=== PATIENT | male | born 1975 | race Caucasian/White ===

== ENCOUNTER 2017-11-18 11:44 | Emergency (ER) | payer OTHER, SELFPAY ==
[2017-11-18 11:45] VITALS: BP 146/106; PULSE 103; RESP 16; TEMP 36.1; BMI 24.3
--- NOTE | 2017-11-18 12:05 | ED.RN ---
pt reports he is only here because his wanted him out of the house. they are going through a divorce.
[2017-11-18 12:28] LABS: Absolute Neutrophil Count 8.1 X10^3/uL (2.0-7.7); Basophil# 0.04 X10^3/uL; Basophil% 0.3 % (0-1); Eosinophil# 0.25 X10^3/uL; Eosinophils% 2.1 % (0-5); Hematocrit 45.5 % (40-54); Lymphocyte % 22.3 % (19-41); Mean Corpuscular Volume 87.8 fL (80-94); Mean Platelet Vol. 9.8 fl (6.2-12.0); Monocyte# 0.95 X10^3/uL; Monocyte% 7.9 % (0-10); Neutrophil # 8.14 X10^3/uL (2.7-7.7); Neutrophil % 67.2 % (47-70); Platelet Count 279 K/mm3 (150-450); RBC Distribution Width CV 14.1 % (11.6-14.6); RBC Distribution Width SD 45.7 fl (35.1-43.9); Red Blood Count 5.18 M/mm3 (4.6-6.2); White Blood Count 12.1 K/mm3 (4.4-11.0)
[2017-11-18 12:33] LABS: POSITIVE COUNT NO; POSITIVE DIFFERENTIAL NO; POSITIVE MORPHOLOGY NO
[2017-11-18 12:50] LABS: AST(SGOT) 14 U/L (15-37); Alanine Aminotransfer ALT/SGPT 24 U/L (16-61); Albumin, Serum 3.9 g/dL (3.2-5.0); Alkaline Phosphatase 82 U/L (45-117); Anion Gap 3 (5-15); BUN 8 mg/dL (7-18); BUN/Creat Ratio 8.9 RATIO (10-20); Calcium,Total 8.8 mg/dL (8.5-10.1); Chloride 106 mmol/L (98-107); EST Glomerular Filtration Rate 98 mL/min (>60); Est Glom Filt Rate - Afr Amer 118 mL/min (>60); Estimated Creatinine Clearance 101.33 ml/min; Globulin 3.9 g/dL (2.2-4.2); Glucose 91 mg/dL (74-106); Protein, Total 7.8 g/dL (6.4-8.2); Sodium Level 139 mmol/L (136-145); Thyroid Stim Hormone (TSH) 2.05 uIU/mL (0.358-3.74)
[2017-11-18 13:01] LABS: Alcohol, Blood (Medical)-Serum < 3.0 mg/dL
[2017-11-18 13:34] LABS: Bacteria 0 SEEN /hpf (None Seen); Mucous, Urine 0 SEEN /hpf (<or=2+); Squamous Epithelial Cells - UA 0 SEEN /hpf (0-5)
[2017-11-18 13:48] LABS: Color, Urine Yellow (Yellow); Glucose, Dipstick Normal (Normal); Ketone-Dipstick Negative (Negative); Leukocyte Esterase-Dipstick 25 /ul (Negative); Nitrite-Dipstick Negative (Negative); Occult Blood-Urine Negative /ul (Negative); Protein-Dipstick 15 mg/dl (Negative); Urine Bilirubin Dipstick Negative (Negative); Urine Clarity Clear (Clear); Urine Urobilinogen Normal (Normal)
[2017-11-18 13:49] LABS: Red Blood Cells-Urine 0-5 SEEN /hpf (0-5); White Blood Cells 0-5 SEEN /hpf (0-5)
[2017-11-18 13:50] LABS: Renal Epithelial Cells 0-5 SEEN /hpf (0-5)
[2017-11-18 13:52] LABS: Amphetamine Urine VISTA NEGATIVE (<1000 ng/mL); Barbiturate Urine VISTA NEGATIVE (< 200 ng/mL); Benzodiazepine Urine VISTA POSITIVE (< 200 ng/mL); Cocaine Urine VISTA NEGATIVE (< 300 ng/mL); Ecstacy Urine VISTA NEGATIVE (< 500 ng/mL); Methadone Urine VISTA NEGATIVE (< 300 ng/mL); PCP Urine VISTA NEGATIVE (< 25 ng/mL); THC Urine VISTA POSITIVE (< 50 ng/mL); Vista UDS pH Range 7
--- NOTE | 2017-11-18 13:56 | ED.VISSUMM ---
- ER Visit Summary Date of Service: 11/18/17 Chief Complaint: Homicidal ideation History of Present Illness: The patient is a 42 M who is brought in by [facility]'s deputy after reported conversation with his regarding mesh shootings and killing her and having her body. That the tells me that the called stating that she was fearful on what he was saying. She had also called the patient's primary care physician who filled out a pink slip and fax it to the [facility]'s department. The patient states that he has had conversations for very long time regarding shootings killings and killing each other. He states that he was a member of [employer] for his killed a lot of people. He states that he wore a flag on his sleeve at [facility] that made it acceptable. He states that he does not have intention of causing a mass shooting. [place] informs me of multiple firearms in the house. He becomes quite irritable when I asked if he has any medical problems. He tells me he last saw his primary care physician 2 weeks ago. He denies doing any street drugs. His right hand is in a splint because he states he sustained a boxer's fracture when he punched the lawnmower. I spoke with the patient's primary care physician Dr. Louise. He notes that he has not seen the patient since before . He states that this seems very out of character for the patient. He states that he has never had any agitation or mention of homicidality while in the office. Dr. Louise states he has a history of PTSD. Nursing spoke with the patient's . She states that she has decided to get asked for divorce. She states that we are welcome to call her with any questions. She states that last night they were going through their items and he was making nonsensical requests. The patient states that she is saying this to get her him out of the house so that she can keep it. She states that she is staying with a friend and has not went anything to do with the house. She states that she has been afraid for some time and has had enough of that. Physical Examination: Afebrile vital signs are stable Gen: Well-nourished well-developed Head: Normocephalic atraumatic Eyes: Perrl EOMI ENT: TMs clear no rhinorrhea moist mucous membranes Neck: Supple no lymphadenopathy no JVD nontender CVS: Regular rate rhythm no murmurs normal S1-S2 Respiratory: No distress clear to auscultation bilaterally chest nontender Abdomen: Soft nontender nondistended normal bowel sounds no masses Back: Nontender Extremity: Nontender no edema Skin: Normal color no rash Neuro: alert orientated ?3 CN II-XII intact normal strength sensation reflexes gait cerebellar Psych: Agitated. Appears internally stimulated. Grandiose. Test Results: Tox screen is positive for THC and benzodiazepines. Emergency Department Course and Treatment: The patient was cleared for crisis evaluation. Impression: 1. Reported homicidality 2. PTSD This note was generated with [employer] dictation software. It may contain incorrect words, spelling, and punctuation that were not noted in review of the chart prior to signing ED Disposition - Plan for ED Patient: Chief Complaint: Mental Health
--- NOTE | 2017-11-18 14:00 | ED.RN ---
attempted to call , Lilia. number listed was same as his and went straight to voicemail.
--- NOTE | 2017-11-18 14:11 | ED.DCSUM_ITS ---
- ER Visit Summary Date of Service: 11/18/17 Chief Complaint: Homicidal ideation History of Present Illness: The patient is a 42 M who is brought in by [facility]'s deputy after reported conversation with his regarding mesh shootings and killing her and having her body. That the tells me that the called stating that she was fearful on what he was saying. She had also called the patient's primary care physician who filled out a pink slip and fax it to the [facility]'s department. The patient states that he has had conversations for very long time regarding shootings killings and killing each other. He states that he was a member of [employer] for his killed a lot of people. He states that he wore a flag on his sleeve at [facility] that made it acceptable. He states that he does not have intention of causing a mass shooting. [place] informs me of multiple firearms in the house. He becomes quite irritable when I asked if he has any medical problems. He tells me he last saw his primary care physician 2 weeks ago. He denies doing any street drugs. His right hand is in a splint because he states he sustained a boxer's fracture when he punched the lawnmower. I spoke with the patient's primary care physician Dr. Louise. He notes that he has not seen the patient since before . He states that this seems very out of character for the patient. He states that he has never had any agitation or mention of homicidality while in the office. Dr. Louise states he has a history of PTSD. Nursing spoke with the patient's . She states that she has decided to get asked for divorce. She states that we are welcome to call her with any questions. She states that last night they were going through their items and he was making nonsensical requests. The patient states that she is saying this to get her him out of the house so that she can keep it. She states that she is staying with a friend and has not went anything to do with the house. She states that she has been afraid for some time and has had enough of that. Physical Examination: Afebrile vital signs are stable Gen: Well-nourished well-developed Head: Normocephalic atraumatic Eyes: Perrl EOMI ENT: TMs clear no rhinorrhea moist mucous membranes Neck: Supple no lymphadenopathy no JVD nontender CVS: Regular rate rhythm no murmurs normal S1-S2 Respiratory: No distress clear to auscultation bilaterally chest nontender Abdomen: Soft nontender nondistended normal bowel sounds no masses Back: Nontender Extremity: Nontender no edema Skin: Normal color no rash Neuro: alert orientated ?3 CN II-XII intact normal strength sensation reflexes gait cerebellar Psych: Agitated. Appears internally stimulated. Grandiose. Test Results: Tox screen is positive for THC and benzodiazepines. Emergency Department Course and Treatment: The patient was cleared for crisis evaluation. Impression: 1. Reported homicidality 2. PTSD This note was generated with [employer] dictation software. It may contain incorrect words, spelling, and punctuation that were not noted in review of the chart prior to signing ED Disposition - Plan for ED Patient: Chief Complaint: Mental Health
--- NOTE | 2017-11-18 14:39 | ED.RN ---
spoke with to inquire about pt's statements. updated physician about her concern for her own safety and statements he makes about harming the public. her number added to chart if we need to contact her. spoke of the guns he has and how he smokes marijuana daily and does not have a job.
[2017-11-18 15:11] VITALS: BP 135/97; PULSE 74; RESP 18; O2SAT 100
[2017-11-18 19:46] VITALS: BP 126/85; PULSE 85; RESP 18; O2SAT 99
[2017-11-18] MEDS: Sertraline 100 MG Tablet PO (20:31)
[2017-11-19 06:00] VITALS: RESP 16
[2017-11-19 07:10] VITALS: RESP 14
--- NOTE | 2017-11-19 08:04 | EKG12_ITS ---
Test Reason : MENTAL HEALTH Blood Pressure : / mmHG Vent. Rate : 073 BPM Atrial Rate : 073 BPM P-R Int : 148 ms QRS Dur : 094 ms QT Int : 390 ms P-R-T Axes : 059 045 037 degrees QTc Int : 429 ms Normal sinus rhythm Normal ECG Confirmed by DELROY LYONS ([id number]), editorial project manager LAMBERTO SALGADO ([id number] on 11/23/2017 4:06:55 PM Referred By: Confirmed By:DELROY LYONS
[2017-11-19 09:15] VITALS: RESP 16
--- NOTE | 2017-11-19 09:36 | ED.RN ---
REPORT GIVEN TO HUBER WOLFE
[2017-11-19 10:00] VITALS: RESP 14
--- NOTE | 2017-11-19 10:25 | ED.RN ---
$60 RETRIEVE FROM [employer] OFFICE TO SEND WITH PT.
[2017-11-19 10:56] VITALS: BP 118/79; PULSE 80; O2SAT 96
--- NOTE | 2017-11-19 10:56 | ED.RN ---
ENVELOPE WITH $60 HANDED TO [facility]UL[facility].
== END 2017-11-19 11:04 | disposition home or self-care (01) ==
PROVIDERS: Emergency Provider Emergency Medicine
DX: R45.850 Homicidal ideations (principal); F43.10 Post-traumatic stress disorder, unspecified; Z72.0 Tobacco use; F32.9 Major depressive disorder, single episode, unspecified
CPT/HCPCS: 36415; 80053; 80307; 80320; 81001; 84443; 85025; 93005; 99284; G0480